=== PATIENT | female | born 1975 | race Caucasian/White ===

== ENCOUNTER 2016-10-16 12:10 | Emergency (ER) | payer MEDICAID ==
[~2016-10-16] VITALS: Wt 65.1 kg
[~2016-10-16 12:10] MED LIST: NO MEDS
[2016-10-16] MEDS ORDERED: LIDOCAINE 1% (MDV) 20 ML INJ SC ONE (14:00)
[2016-10-16] MEDS ORDERED: CEPH-443 PO (15:15)
[2016-10-16] MEDS ORDERED: IBUP-1542 PO (15:15)
[2016-10-16] MEDS ORDERED: SULF1TAB31 PO (15:15)
--- NOTE | 2016-10-16 15:23 | ERD ---
ER Documentation Chief Complaint Date/Time DATE: 10/16/16 TIME: 15:18 Chief Complaint RIGHT AXILLA ABSCESS FOR 1 WEEK. LARGE REDNESS NO DRAINAGE HPI Patient is a 41-year-old female who presents to the emergency department for concerns of abscess in her right axilla. Patient states that initially there was a small pimple however the there has been increasing redness and swelling. Patient denies any fevers or chills. Patient denies any active bleeding or discharge from the affected area. Patient does report shaving her axilla. She states that she has had an abscess in her left axilla in the past. Patient denies any nausea, vomiting, chest pain, shortness of breath, loss of consciousness. Recent travel. ROS All systems reviewed and are negative except as per history of present illness. Medications Home Meds Active Scripts Sulfamethoxazole/Trimethoprim* (Bactrim Ds* Tablet) 1 Each Tablet, 1 TAB PO BID , #14 TAB Prov:JIA HAYDEN PA-C 10/16/16 Cephalexin* (Keflex*) 500 Mg Capsule, 500 MG PO TID for 7 Days, CAP Prov:JIA HAYDEN PA-C 10/16/16 Ibuprofen* (Motrin*) 600 Mg Tab, 600 MG PO Q6, #30 TAB Prov:JIA HAYDEN PA-C 10/16/16 Reported Medications [No Meds] No Conflict Check 01/01/12 Allergies Allergies: Coded Allergies: No Known Allergy (Unverified , 10/16/16) PMhx/Soc Medical and Surgical Hx: pt denies Surgical Hx History of Surgery: No Anesthesia Reaction: No Hx Neurological Disorder: No Hx Respiratory Disorders: No Hx Cardiac Disorders: Yes (HTN ) Hx Psychiatric Problems: No Hx Miscellaneous Medical Probl: No Hx Alcohol Use: No Hx Substance Use: No Hx Tobacco Use: No Smoking Status: Never smoker FmHx Family History: No diabetes Physical Exam Vitals Vital Signs Date Time Temp Pulse Resp B/P Pulse Ox O2 Delivery O2 Flow Rate FiO2 10/16/16 12:13 97.7 86 20 168/96 97 Physical Exam GENERAL: Well-developed, well-nourished female. Appears in no acute distress. HEAD: Normocephalic, atraumatic. EYES: Pupils are equally reactive bilaterally. EOMs grossly intact. No conjunctival erythema. ENT: Moist mucous membranes. No uvula deviation. No kissing tonsils. NECK: Supple. No meningismus. Normal range of motion of the neck. LUNG: Clear to auscultation bilaterally. No rhonchi, wheezing, rales or coarse breath sounds. HEART: Regular rate and rhythm. No murmurs, rubs or gallops. EXTREMITIES: Equal pulses bilaterally. No peripheral clubbing, cyanosis or edema. No unilateral leg swelling. NEUROLOGIC: Alert and oriented. Moving all four extremities without any difficulty. Normal speech. Steady gait. SKIN: Normal color. Warm and dry. No rashes or lesions. 2- 3 cm circular, erythematous abscesses is noted in the patient's right axilla. Slight warmth noted. +Induration and fluctuance noted. Results 24 hrs Current Medications Medications (Trade) Dose Ordered Sig/Amber Route PRN Reason Start Time Stop Time Status Last Admin Dose Admin Lidocaine (Xylocaine 1% (Mdv) 20 ml) 20 ml ONCE ONCE SC 10/16/16 14:00 10/16/16 14:01 DC Procedures/MDM ED COURSE: The patient was stable throughout ED course. I kept the patient and/or family informed of laboratory and diagnostic imaging results throughout the ED course. PROCEDURES: INCISION AND DRAINAGE: The patient was verbally consented prior to procedure. Patient was explained the risks, benefits and alternatives to this procedure. Location: Right axilla, 2 abscesses Abscess size: 3 cm Anesthesia: local 1% lidocaine, 5 cc Preparation: The area was prepped in a sterile fashion using betadine x3 cleanses. A sterile field was prepared. Technique: A sterile 11 blade scalpel was used to make a 1 cm linear incision into both abscesses. Procedure: A midline abscess incision was made using a sterile scalpel in a linear fashion. Purulent material was expressed with direct pressure. Blunt probing was used to break up loculations. Bleeding was minimal. Packing: none The patient tolerated the procedure well with no complications. The wound was dressed in sterile gauze. The patient was neurovascularly intact post- procedure. Post-procedural wound care was discussed with the patient. MEDICAL DECISION MAKING: This is a 41-year-old female who presents to emergency department for concerns of abscesses in her right axilla. Patient does report shaving the affected area. Patient states initially she had small pimples which have now increased in size. She denies any fevers or chills. Vital signs were reviewed. Patient was afebrile. Incision and drainage was conducted. Purulent discharge was expressed from both abscess sites. See incision and drainage note. Patient tolerated procedure without any difficulty. At this time, patient's presentation is most consistent with right axilla abscesses. Low suspicion for deep space infection, cellulitis, neurovascular injury. Patient was advised to start antibiotics as soon as possible. Patient was advised to perform warm compresses to the affected site. Wound recheck advised in 2 days. PRESCRIPTIONS: Keflex, Bactrim, ibuprofen DISCHARGE: At this time, the patient is stable for discharge and outpatient management. Post-procedural wound care was discussed with the patient. The patient has been advised to return to the ER in 2 days for a wound check. I have instructed the patient to promptly return to the ER for any new or worsening symptoms including increasing pain, fever, warmth, redness or swelling. The patient and/ or family expressed understanding of and agreement with this plan. All questions were answered. Home care instructions were provided. Patients blood pressure was elevated (>120/80) but appears stable without evidence of hypertensive emergency, hypertensive urgency or end-organ failure. I had discussion with the patient about the risks of hypertension. I have advised the patient to follow up with his/her primary care physician for outpatient monitoring and treatment for hypertension in 2-3 days. I have instructed the patient to return to the ER for any new or worsening symptoms including chest pain, shortness of breath, headache, blurred vision, confusion, nausea, vomiting or LOC. Departure Diagnosis: Primary Impression: Abscess Condition: Stable Patient Instructions: Abscess, Incision And Drainage Referrals: [facility] YOU HAVE RECEIVED A MEDICAL SCREENING EXAM AND THE RESULTS INDICATE THAT YOU DO NOT HAVE A CONDITION THAT REQUIRES URGENT TREATMENT IN THE EMERGENCY DEPARTMENT. FURTHER EVALUATION AND TREATMENT OF YOUR CONDITION CAN WAIT UNTIL YOU ARE SEEN IN YOUR DOCTORS OFFICE WITHIN THE NEXT 1-2 DAYS. IT IS YOUR RESPONSIBILITY TO MAKE AN APPOINTMENT FOR FOLOW-UP CARE. IF YOU HAVE A PRIMARY DOCTOR --you should call your primary doctor and schedule an appointment IF YOU DO NOT HAVE A PRIMARY DOCTOR YOU CAN CALL OUR PHYSICIAN REFERRAL HOTLINE AT IF YOU CAN NOT AFFORD TO SEE A PHYSICIAN YOU CAN CHOSE FROM THE FOLLOWING [facility] [address] [facility] [address] [facility]. [facility] [address] [facility] [address] [facility] [address] [facility]. [facility] [address] [facility]. [facility] YOU HAVE RECEIVED A MEDICAL SCREENING EXAM AND THE RESULTS INDICATE THAT YOU DO NOT HAVE A CONDITION THAT REQUIRES URGENT TREATMENT IN THE EMERGENCY DEPARTMENT. FURTHER EVALUATION AND TREATMENT OF YOUR CONDITION CAN WAIT UNTIL YOU ARE SEEN IN YOUR DOCTORS OFFICE WITHIN THE NEXT 1-2 DAYS. IT IS YOUR RESPONSIBILITY TO MAKE AN APPOINTMENT FOR FOLOW-UP CARE. IF YOU HAVE A PRIMARY DOCTOR --you should call your primary doctor and schedule and appointment IF YOU DO NOT HAVE A PRIMARY DOCTOR YOU CAN CALL OUR PHYSICIAN REFERRAL HOTLINE AT . IF YOU CAN NOT AFFORD TO SEE A PHYSICIAN YOU CAN CHOSE FROM THE FOLLOWING [facility] INSTITUTIONS: [facility] [address] [place] [address] [facility] [address] [place] [address] [facility] [address] [place] [address] Additional Instructions: Call your primary care doctor TOMORROW for an appointment during the next 1-2 days.See the doctor sooner or return here if your condition worsens before your appointment time. Return in 2 days for wound recheck. Return sooner for any new or worsening symptoms including worsening redness, swelling, pain, fever or chills. Start antibiotics as soon as possible. Apply warm compresses to the affected area. JIA HAYDEN PA-C Oct 16, 2016 15:23
== END 2016-10-16 15:36 | disposition home or self-care (01) ==
LOC: FTE 12:10
DX: L02.411 Cutaneous abscess of right axilla (principal); I10 Essential (primary) hypertension
CPT/HCPCS: 10061; Z7502; Z7610

== ENCOUNTER 2018-03-20 21:57 | Emergency (ER) | payer MEDICAID ==
[~2018-03-20] VITALS: Wt 62.6 kg
[~2018-03-20 21:57] MED LIST changes: +CEPH-443 PO; +IBUP-1542 PO; +SULF1TAB31 PO
[2018-03-20] MEDS ORDERED: KETOROLAC 60 MG INJ IM STA (23:49)
[2018-03-21] MEDS ORDERED: SULF1TAB31 PO (00:31)
[2018-03-21] MEDS ORDERED: IBUP-1542 PO (00:31)
[2018-03-21] MEDS ORDERED: CEPH-443 PO (00:31)
--- NOTE | 2018-03-21 02:24 | ERD ---
ER Documentation Chief Complaint Chief Complaint bib self, cc: vaginal abscess x 3 days, patient is in pain HPI 42-year-old female patient with no significant past medical history presents to the ED complaining of a vaginal abscess that she has had for the past 3 days. Reports that she has had this previously and applied warm compresses with relief with taking antibiotics. Reports that she would like to do the same for today. Reports that she does not want incision and drainage. Denies any fever, chills, vaginal discharge, vaginal bleeding, dysuria, urgency, frequency or hematuria. Reports her last menstruation 4 days ago but does not remember the exact first date. Denies any concern for STDs. ROS All systems reviewed and are negative except as per history of present illness. Medications Home Meds Active Scripts Ibuprofen* (Motrin*) 600 Mg Tab, 600 MG PO Q6, #30 TAB Prov:DORA GÓMEZ-C 03/21/18 Cephalexin* (Keflex*) 500 Mg Capsule, 500 MG PO QID for 7 Days, CAP Prov:DORA GÓMEZ-C 03/21/18 Sulfamethoxazole/Trimethoprim* (Bactrim Ds* Tablet) 1 Each Tablet, 1 TAB PO BID, #14 TAB Prov:DORA GÓMEZ-C 03/21/18 Sulfamethoxazole/Trimethoprim* (Bactrim Ds* Tablet) 1 Each Tablet, 1 TAB PO BID, #14 TAB Prov:JIA HAYDEN-C 10/16/16 Cephalexin* (Keflex*) 500 Mg Capsule, 500 MG PO TID for 7 Days, CAP Prov:JIA HAYDEN-C 10/16/16 Ibuprofen* (Motrin*) 600 Mg Tab, 600 MG PO Q6, #30 TAB Prov:JIA HAYDEN PA-C 10/16/16 Reported Medications [No Meds] No Conflict Check 01/01/12 Allergies Allergies: Coded Allergies: No Known Allergy (Unverified , 10/16/16) PMhx/Soc Medical and Surgical Hx: pt denies Medical Hx, pt denies Surgical Hx History of Surgery: No Anesthesia Reaction: No Hx Neurological Disorder: No Hx Respiratory Disorders: No Hx Cardiac Disorders: Yes (HTN ) Hx Psychiatric Problems: No Hx Miscellaneous Medical Probl: No Hx Alcohol Use: No Hx Substance Use: No Hx Tobacco Use: No Smoking Status: Never smoker FmHx Family History: No diabetes, No coronary disease Physical Exam Vitals Vital Signs Date Temp Pulse Resp B/P (MAP) Pulse Ox O2 O2 Flow FiO2 Time Delivery Rate 03/20/18 97.0 87 19 144/77 100 22:00 (99) Physical Exam Const: Npa-jer-dxrgjjjla, well-nourished. In no acute distress. Head: Atraumatic, normocephalic Eyes: Normal Conjunctiva without injection. No purulent discharge. ENT: Normal external ear, nose. Moist oropharynx without tonsillar exudates. Non-erythematous pharynx. Uvula midline. No drooling. No trismus. Neck: No cervical midline tenderness. Full range of motion. No meningismus. No cervical lymphadenopathy. No JVD. Resp: Clear to auscultation bilaterally. No wheezing, rhonchi, rales, or crackles. No accessory muscle use. No retractions. Cardio: Regular rate and rhythm. No murmurs, rubs or gallops. Abd: Soft, nontender, non distended. Normal bowel sounds. No palpable masses. No rebound tenderness. No guarding. Negative McBurney's point. Negative psoas sign. Negative obturator sign. : See exam in MDM. Skin: No petechiae or rashes Back: No midline tenderness. No CVA tenderness. Ext: No cyanosis, or edema. Neur: Awake and alert. Normal gait. Normal coordination. Psych: Normal Mood and Affect Results 24 hrs Laboratory Tests Test 03/21/18 00:26 POC Beta HCG, Qualitative NEGATIVE Current Medications Medications Dose Sig/Amber Start Time Status Last (Trade) Ordered Route PRN Stop Time Admin Dose Reason Admin Ketorolac 60 mg ONCE STAT 03/20/18 DC 03/21/18 Tromethamine IM 23:49 03/20/18 00:34 (Toradol) 23:53 Procedures/[facility] 42-year-old female patient with no significant past medical history presents to ED complaining of a left labia abscess. Patient is afebrile and nontoxic- appearing. Pelvic Exam: Cosmetology Educator present Abdomen: Nontender External Genitalia: Normal Skin. Erythematous, indurated Bartholin cyst with tenderness to palpation. No fluctuance or warmth to touch. Urine : Negative. Patient was given Toradol here in the ED with improvement of her pain. She likely has a Bartholin cyst at this time. Warm compresses were recommended. Patient was given Bactrim, Keflex and ibuprofen for outpatient management. Instructed to return to the ED in 2 days for recheck and for possible incision and drainage if no improvement or worsening. Low suspicion for ectopic , ovarian torsion, gastritis, GERD, peptic ulcer disease, cholecystitis, choledocholithiasis, cholangitis, pancreatitis, appendicitis, bowel obstruction, ileus, volvulus, nephrolithiasis, pyelonephritis, hepatitis, perforated viscus, diverticulitis, strangulated/incarcerated hernia, DKA, acute abdomen, mesenteric ischemia or other emergent conditions. Diagnosis: Bartholin's gland abscess Discharge medications: Bactrim, Keflex, Ibuprofen Follow up with primary care physician in 1-2 days. Instructed patient to return to the ED sooner for any worsening symptoms. Patient's questions were answered. Patient is hemodynamically stable. Patient understood and agreed with discharge plan. Patient discharged stable. Disclaimer: Inadvertent spelling and grammatical errors are likely due to EHR/dictation software use and do not reflect on the overall quality of patient care. Also, please note that the electronic time recorded on this note does not necessarily reflect the actual time of the patient encounter. Departure Diagnosis: Primary Impression: Bartholin's gland abscess Condition: Stable Patient Instructions: Abscess, Antiobiotic Treatment Only, Bartholin's Cyst (I And D) Referrals: [facility] YOU HAVE RECEIVED A MEDICAL SCREENING EXAM AND THE RESULTS INDICATE THAT YOU DO NOT HAVE A CONDITION THAT REQUIRES URGENT TREATMENT IN THE EMERGENCY DEPARTMENT. FURTHER EVALUATION AND TREATMENT OF YOUR CONDITION CAN WAIT UNTIL YOU ARE SEEN IN YOUR DOCTORS OFFICE WITHIN THE NEXT 1-2 DAYS. IT IS YOUR RESPONSIBILITY TO MAKE AN APPOINTMENT FOR FOLOW-UP CARE. IF YOU HAVE A PRIMARY DOCTOR --you should call your primary doctor and schedule an appointment IF YOU DO NOT HAVE A PRIMARY DOCTOR YOU CAN CALL OUR PHYSICIAN REFERRAL HOTLINE AT IF YOU CAN NOT AFFORD TO SEE A PHYSICIAN YOU CAN CHOSE FROM THE FOLLOWING [facility] [address] [facility]. [facility] [address] [facility]. [facility] [address] [facility]. [facility] [address] [facility]. [facility] [address] [facility]. [facility] [address] [facility]. [facility] YOU HAVE RECEIVED A MEDICAL SCREENING EXAM AND THE RESULTS INDICATE THAT YOU DO NOT HAVE A CONDITION THAT REQUIRES URGENT TREATMENT IN THE EMERGENCY DEPARTMENT. FURTHER EVALUATION AND TREATMENT OF YOUR CONDITION CAN WAIT UNTIL YOU ARE SEEN IN YOUR DOCTORS OFFICE WITHIN THE NEXT 1-2 DAYS. IT IS YOUR RESPONSIBILITY TO MAKE AN APPOINTMENT FOR FOLOW-UP CARE. IF YOU HAVE A PRIMARY DOCTOR --you should call your primary doctor and schedule and appointment IF YOU DO NOT HAVE A PRIMARY DOCTOR YOU CAN CALL OUR PHYSICIAN REFERRAL HOTLINE AT . IF YOU CAN NOT AFFORD TO SEE A PHYSICIAN YOU CAN CHOSE FROM THE FOLLOWING [facility] INSTITUTIONS: [facility] [address] [place] [address] [facility] [address] [place] [address] [facility] [address] [place], [place] [address] URGENT CARE/SPECIALTIES TEST [place] [address] [facility] [address] [place], [place] [id number] OFFICE FAX CARMINA SANCHEZNICA [address] [place], [place] [phone] DR. ALMANZAR BOUTON [address] [place], [place] [id number] NEPTALI WILLIAMSON [address] [facility], [address] [id number] [address] MCDONAL[address] [address] [place] [phone] [facility] [address] [place], [place] [id number] [address] [facility] [address] - [address] HARMAN, JUSTINA [address], [facility] [id number] CHEUNG, GABRIELLA [address] [facility]. [address], [facility] [id number] CABA, [facility] [address] [place] [address] [facility] Hours: 8:00 am - 5:00 pm Additional Instructions: Call your primary care doctor TOMORROW for an appointment during the next 2-3 days.See the doctor sooner or return here if your condition worsens before your appointment time. Follow up in 2 days in your clinic for wound check. DORA GÓMEZ PA-C Mar 21, 2018 02:23
== END 2018-03-21 00:58 | disposition home or self-care (01) ==
LOC: FTE 21:57
DX: N75.1 Abscess of Bartholin's gland (principal); I10 Essential (primary) hypertension
CPT/HCPCS: 56420; 81025; 96372; J1885; Z7502

== ENCOUNTER 2018-03-24 20:53 | Emergency (ER) | payer MEDICAID ==
[~2018-03-24] VITALS: Ht 162.6 cm; Wt 61.9 kg
[2018-03-24 21:15] VITALS: Ht 162.6 cm; Wt 61.9 kg
--- NOTE | 2018-03-24 22:29 | ERD ---
ER Documentation Chief Complaint Chief Complaint abdominal pain x 2 days HPI 42-year-old woman complains of diffuse abdominal cramping times 2 days shortly after beginning cephalexin and Bactrim for Bartholin cyst about 3-4 days ago. She has had some nausea but no vomiting or diarrhea, no blood per rectum or melena, no complaints of chest pain or shortness of breath. Patient denies fevers or chills and states symptoms improved today when she stopped using her antibiotics in the morning and used 1 dose of Tylenol at home. She has been able to tolerate p.o. without difficulty ROS All systems reviewed and are negative except as per history of present illness. Medications Home Meds Active Scripts Lactobac Cmb #3/Fos/Pantethine (PROBIOTIC & ACIDOPHILUS CAP) 1 Each Capsule, 1 EACH PO DAILY, #30 CAP Prov:ZAYNAB COYLE MD 03/24/18 Cephalexin* (Keflex*) 500 Mg Capsule, 500 MG PO QID for 7 Days, CAP Prov:DORA GÓMEZ PA-C 03/21/18 Sulfamethoxazole/Trimethoprim* (Bactrim Ds* Tablet) 1 Each Tablet, 1 TAB PO BID, #14 TAB Prov:JIA HAYDEN PA-C 10/16/16 Ibuprofen* (Motrin*) 600 Mg Tab, 600 MG PO Q6, #30 TAB Prov:JIA HAYDEN PA-C 10/16/16 Reported Medications Acetaminophen* (Acetaminophen*) 500 MG Extra Strength Tablet, 500 MG PO Q4H PRN for PAIN AND OR ELEVATED TEMP, TAB 03/24/18 Discontinued Reported Medications [No Meds] No Conflict Check 01/01/12 Discontinued Scripts Ibuprofen* (Motrin*) 600 Mg Tab, 600 MG PO Q6, #30 TAB Prov:DORA GÓMEZ PA-C 03/21/18 Sulfamethoxazole/Trimethoprim* (Bactrim Ds* Tablet) 1 Each Tablet, 1 TAB PO BID, #14 TAB Prov:DORA GÓMEZ PA-C 03/21/18 Cephalexin* (Keflex*) 500 Mg Capsule, 500 MG PO TID for 7 Days, CAP Prov:JIA HAYDEN-C 10/16/16 Allergies Allergies: Coded Allergies: No Known Allergy (Unverified , 03/24/18) PMhx/Soc Medical and Surgical Hx: pt denies Surgical Hx History of Surgery: No Anesthesia Reaction: No Hx Neurological Disorder: No Hx Respiratory Disorders: No Hx Cardiac Disorders: Yes (HTN ) Hx Psychiatric Problems: No Hx Miscellaneous Medical Probl: No Hx Alcohol Use: No Hx Substance Use: No Hx Tobacco Use: No Smoking Status: Never smoker FmHx Family History: No diabetes Physical Exam Vitals Vital Signs Date Temp Pulse Resp B/P (MAP) Pulse Ox O2 O2 Flow FiO2 Time Delivery Rate 03/24/18 76 14 119/76 100 Room Air 23:32 (90) 03/24/18 97.4 72 11 137/89 100 22:13 (105) 03/24/18 96.8 89 18 166/90 99 21:15 (115) Physical Exam Const: No acute distress, looks well, hydrated, afebrile Head: Atraumatic Eyes: Normal Conjunctiva ENT: Normal External Ears, Nose and Mouth. Neck: Full range of motion. No meningismus. Resp: Clear to auscultation bilaterally Cardio: Regular rate and rhythm, no murmurs Abd: Soft, non tender, non distended. No guarding, rigidity, or rebound. No McBurney's point tenderness Skin: No petechiae or rashes Back: No midline or flank tenderness Ext: No cyanosis, or edema Neur: Awake and alert x3, no focal deficits or facial asymmetry Psych: Normal Mood and Affect Result Diagram: 03/24/18223903/24/182239 Results 24 hrs Laboratory Tests Test 03/24/18 22:40 White Blood Count 7.1 10^3/ul Red Blood Count 3.63 10^6/ul Hemoglobin 10.2 g/dl Hematocrit 31.5 % Mean Corpuscular Volume 86.8 fl Mean Corpuscular Hemoglobin 28.1 pg Mean Corpuscular Hemoglobin Concent 32.4 g/dl Red Cell Distribution Width 14.8 % Platelet Count 313 10^3/UL Mean Platelet Volume 9.6 fl Immature Granulocytes % 0.100 % Neutrophils % 55.4 % Lymphocytes % 29.8 % Monocytes % 10.9 % Eosinophils % 3.2 % Basophils % 0.6 % Nucleated Red Blood Cells % 0.0 /100WBC Immature Granulocytes # 0.010 10^3/ul Neutrophils # 3.9 10^3/ul Lymphocytes # 2.1 10^3/ul Monocytes # 0.8 10^3/ul Eosinophils # 0.2 10^3/ul Basophils # 0.0 10^3/ul Nucleated Red Blood Cells # 0.0 10^3/ul Urine Color STRAW Urine Clarity SLIGHTLY CLOUDY Urine pH 6.0 Urine Specific Donnelly 1.006 Urine Ketones NEGATIVE mg/dL Urine Nitrite NEGATIVE mg/dL Urine Bilirubin NEGATIVE mg/dL Urine Urobilinogen NEGATIVE mg/dL Urine Leukocyte Esterase NEGATIVE Cara/ul Urine Microscopic RBC 1 /HPF Urine Microscopic WBC 3 /HPF Urine Squamous Epithelial Cells FEW /HPF Urine Bacteria FEW /HPF Urine Hemoglobin NEGATIVE mg/dL Urine Glucose NEGATIVE mg/dL Urine Total Protein NEGATIVE mg/dl Sodium Level 137 mmol/L Potassium Level 4.2 mmol/L Chloride Level 104 mmol/L Carbon Dioxide Level 25 mmol/L Anion Gap 8 Blood Urea Nitrogen 11 mg/dl Creatinine 0.91 mg/dl Est Glomerular Filtrat Rate mL/min > 60 mL/min Glucose Level 104 mg/dl Calcium Level 8.9 mg/dl Total Bilirubin 0.1 mg/dl Direct Bilirubin 0.00 mg/dl Indirect Bilirubin 0.1 mg/dl Aspartate Amino Transf (AST/SGOT) 45 IU/L Alanine Aminotransferase (ALT/SGPT) 75 IU/L Alkaline Phosphatase 87 IU/L Total Protein 7.2 g/dl Albumin 3.8 g/dl Globulin 3.40 g/dl Albumin/Globulin Ratio 1.11 Lipase 69 U/L Current Medications Medications Dose Sig/Amber Start Time Status Last (Trade) Ordered Route PRN Stop Time Admin Dose Reason Admin Ibuprofen 600 mg ONCE ONCE 03/24/18 DC 03/24/18 (Motrin) PO 22:30 23:30 03/24/18 22:59 Oxycodone/ 1 tab ONCE ONCE 03/24/18 DC 03/24/18 Acetaminophen PO 22:30 23:30 (Percocet 03/24/18 22:59 (5/ 325)) Procedures/MDM I administered ibuprofen 600 mg p.o. and Percocet 1 tablet p.o. CBC and electrolytes are normal, liver function tests were normal, urinalysis was negative for infection Patient's abdominal cramping has improved and she has no concerning points on history or physical examination. I recommend that she continue her antibiotics as prescribed earlier for Bartholin cyst and prescribed her probiotics to help with abdominal colic due to antibiotic side effect. Differential diagnoses considered, included but not limited to acute coronary syndrome, pulmonary embolism, aortic dissection, abdominal aortic aneurysm, sepsis, stroke, meningitis, encephalitis, pneumonia, appendicitis, cholecystitis, bowel obstruction, pyelonephritis, nephrolithiasis, cystitis, as well as metabolic, hematologic, and electrolyte abnormalities. As well as abscess, cellulitis, fractures, and dislocations. Patient feels much better at this time, and vital signs are normal, symptoms have improved. I did give strict instructions to return to the ED if symptoms continue or worsen, patient will otherwise follow-up with primary care ph ysician. Patient understood instructions and agreed to plan. Disclaimer: Inadvertent spelling and grammatical errors are likely due to EHR/dictation software use and do not reflect on the overall quality of patient care. Also, please note that the electronic time recorded on this note does not necessarily reflect the actual time of the patient encounter. Departure Diagnosis: Primary Impression: Abdominal colic Additional Impression: Medication side effect Condition: ZAYNAB Gloria MD Mar 24, 2018 22:29
[2018-03-24] MEDS ORDERED: IBUPROFEN 600 MG TAB PO ONE (22:30)
[2018-03-24] MEDS ORDERED: OXYCODONE/ACETAMINOPHEN (5/325) TAB PO ONE (22:30)
[2018-03-24] MEDS ORDERED: LACT1CAP17 PO (23:31)
[2018-03-24 23:32] VITALS: BP 119/76; PULSE 76; RESP 14
[2018-03-24] MEDS ORDERED: ACET-141 PO (23:39)
== END 2018-03-24 23:54 | disposition home or self-care (01) ==
LOC: E/R 20:53
DX: R10.84 Generalized abdominal pain (principal); I10 Essential (primary) hypertension; T36.1X5A Adverse effect of cephalosporins and other beta-lactam antibiotics, initial encounter
CPT/HCPCS: 80053; 81001; 83690; 85025; Z7502; Z7610; 81003; 99283